=== PATIENT | female | born 1950 | race Caucasian/White ===

== ENCOUNTER 2018-08-20 19:16 | Emergency (ER) | payer OTHER ==
[~2018-08-20] VITALS: Ht 162.6 cm; Wt 62.4 kg
[2018-08-20 19:39] VITALS: Ht 162.6 cm; Wt 62.4 kg
[2018-08-20 21:30] VITALS: BP 174/92
== END 2018-08-20 21:30 | disposition home or self-care (01) ==
LOC: ED 19:16
DX: S09.8XXA Other specified injuries of head, initial encounter (principal); Z87.442 Personal history of urinary calculi; Z90.49 Acquired absence of other specified parts of digestive tract; Z91.041 Radiographic dye allergy status; W01.0XXA Fall on same level from slipping, tripping and stumbling without subsequent striking against object, initial encounter; Y93.89 Activity, other specified; Y92.89 Other specified places as the place of occurrence of the external cause; Y99.8 Other external cause status

== ENCOUNTER 2020-01-02 12:55 | Emergency (ER) | payer OTHER ==
[~2020-01-02] VITALS: Ht 152.4 cm; Wt 59.9 kg
[2020-01-02 13:13] VITALS: BP 136/76; Ht 152.4 cm; Wt 59.9 kg
== END 2020-01-02 15:40 | disposition home or self-care (01) ==
LOC: ED 12:55
DX: T78.49XA Other allergy, initial encounter (principal); L20.9 Atopic dermatitis, unspecified; Z87.442 Personal history of urinary calculi; Z98.890 Other specified postprocedural states; Z88.8 Allergy status to other drugs, medicaments and biological substances; X58.XXXA Exposure to other specified factors, initial encounter